=== PATIENT | male | born 1960 | race Caucasian/White ===

== ENCOUNTER 2021-02-23 09:54 | Outpatient (CLI) | payer OTHER, SELFPAY ==
--- NOTE | 2021-02-23 10:07 | XR_ITS ---
WS: [id number] XR lumbar spine 2-3V* [id number] REASON FOR EXAM: BACK PAIN FINDINGS: Rotatory scoliosis of the lumbar spine convex right. Mild biconcave compression deformities L1-S1, mo st prominent at L1. Moderate of the intervertebral disc spaces at L1-L2, L2-L3, and L4-L5. Remaining disc space intervals are only mildly narrowed. 3 to 4 mm of anterolisthesis of L4 on L5 and L5 on S1. This is associated with severe degenerative ch polly in the facet joints at L4-L5 and L5-S1. XR/XR lumbar spine 2-3V* [id number] IMPRESSION: Compression deformities of unknown age. Degenerative lumbar disc disease which appears to be most severe at L4-L5 and L 5-S1.
--- NOTE | 2021-02-23 10:07 | XR_ITS ---
WS: [id number] XR hip RT 2-3V wo/w pel* [id number] REASON FOR EXAM: R HIP PAIN/BACK PAIN FINDINGS: There is severe narrowing of the weightbearing portion of the hip joint space with significant subcho ndral sclerosis in the acetabulum and femoral head. There is marked flattening and deformity of the f emoral head with large overhanging osteophytes. 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 XR/XR hip RT 2-3V wo/w pel* [id number] IMPRESSION: Severe osteoarthritis in the right hip joint.
== END 2021-02-23 09:55 | disposition home or self-care (01) ==
PROVIDERS: PCP Dermatology; Visit Provider Dermatology
DX: M54.5 Low back pain (principal); M25.551 Pain in right hip; M51.36 Other intervertebral disc degeneration, lumbar region; M16.11 Unilateral primary osteoarthritis, right hip
CPT/HCPCS: 72100; 73502